=== PATIENT | female | born 1980 | race Caucasian/White ===

== ENCOUNTER 2023-10-12 20:31 | Observation (INO) | payer MEDICARE, SELFPAY ==
[2023-10-12 17:13] VITALS: BP 136/90
[2023-10-12 17:44] LABS: % Basophils 0.8 % (0-2); % Eosinophils 2.2 % (0-6); % Immature Granulocytes 0.1 % (0-0.5); % Lymphocytes 29.9 % (20.5-51.1); % Monocytes 7.1 % (1.7-9.3); % Neutrophils 59.9 % (42.2-75.2); Absolute Basophils 0.1 10^3/uL (0-0.2); Absolute Eosinophils 0.2 10^3/uL (0-0.7); Absolute Lymphocytes 2.2 10^3/uL (1.2-3.4); Absolute Monocytes 0.5 10^3/uL (0.1-0.6); Absolute Neutrophils 4.5 10^3/uL (1.4-6.5); Hematocrit 36.3 % (37.0-47.0); Hemoglobin 12.8 g/dL (12.0-16.0); Mean Corp Hgb Conc. 35.3 g/dL (33.0-37.0); Mean Corpuscular Hgb 30.8 pg (27.0-31.0); Mean Corpuscular Volume 87.5 fL (81.0-99.0); Nucleated Red Blood Cells % 0 %; Platelet Count 274 10^3/uL (130-400); Red Blood Cell Count 4.15 10^6/uL (4.20-5.40); Red Cell Dist. Width 12.5 % (11.5-14.5); White Blood Cell Count 7.4 10^3/uL (4.8-10.8)
[2023-10-12 17:51] LABS: ALT (SGPT) 12 U/L (0-35); AST (SGOT) 20 U/L (14-36); Albumin 4.1 g/dl (3.5-5.0); Alkaline Phosphatase 57 U/L (38-126); Blood Urea Nitrogen 12 mg/dl (7-17); Carbon Dioxide 26 mmol/L (22-30); Chloride 104 mmol/L (98-107); Glucose 104 mg/dl (70-99); Potassium 3.7 mmol/L (3.5-5.1); Sodium 136 mmol/L (135-145); Total Bilirubin 0.3 mg/dl (0.2-1.3); Total Protein 6.2 g/dl (6.3-8.2); eGFR > 60.00
--- NOTE | 2023-10-12 19:45 | ED.CVA ---
History of Present Illness
General
Chief Complaint: CVA/TIA Symptoms
Source: patient and spouse
Exam Limitations: none
Time Seen by Provider: 10/12/23 19:24
Nursing documentation reviewed up to this point in time: agreed with
Onset of Stroke Symptoms
Onset of symptoms known: Yes
Date of onset of symptoms: 10/09/23
History of Present Illness
History of Present Illness:
43 yo female presents to the emergency department c/o intermittent double vision, tongue numbness. Intermittent spine numbness and stuttering.
Past History
Past History
ED Past Surgical History: Orthopedic (Joint fusion)
Social History
Tobacco: Non-smoker
Alcohol: None
Drug: None
Personal:
Living: with family
Review of Systems
Review of Systems
Allergies reviewed?: Yes
All Other Systems: Not applicable
Constitutional: Reports no symptoms
EENT: Reports other (double vision)
Respiratory: Reports no symptoms
Cardiac: Reports no symptoms
ABD/GI: Reports no symptoms
: Reports no symptoms
Musculoskeletal: Reports back pain
Skin: Reports no symptoms
Neurological: Reports numbness and other (double vision)
Endocrine: Reports no symptoms
Hematologic/Lymphatic: Reports no symptoms
Psychiatric: Reports no symptoms
Phy Exam
Physical Exam
Physical Exam:
Physical Exam
General: appears uncomfortable
Neck: supple. no meningeal signs. normal posterior pharynx
Heart: s1/s2 regular rate and rhythm, no murmur. equal radial
pulses.
HEENT: Pupils equal round reactive to light, EOMI
Lungs: no acute respiratory distress. clear bilaterally
Abdomen: normal bowel sounds. not tender. no CVAT
Neuro: alert and oriented. no focal neurological deficits cranial nerves II through XII intact
Skin: no rash
Psychiatric: well kept. interactive and cooperative
Extremities: no edema. no calf tenderness. negative homans. good distal pulses
Course
Orders/Labs/Results
Orders:
Orders
10/12/23 17:27
CT Head W/o Iv Contrast Urgent
Comment:
Reason For Exam: blurry vision, numbness
10/12/23 17:31
Complete Blood Count/With Diff Urgent
Comprehensive Metabolic Panel Urgent
10/12/23 20:06
Ketorolac [Toradol] 15 mg IV NOW STA
10/12/23 20:21
Admit/Transfer Patient As Directed
Co-Sign Provider:
Level of Care: Observation services
Assign to:: Telemetry
Physician / Group: [email or web address]
Diagnosis: Acute onset of diplopia and toungur numbness without motor neurodeficit
Reason for Telemetry: CVA/TIA
Date to Stop Telemetry: 10/15/23
Time to Stop Telemetry: 11:00
Reason for Hospitalization: Acute onset of diplopia and toungur numbness without motor neurodeficit
DDX:MS vs TIA
10/12/23 20:23
Code Status As Directed
Resuscitation Status: Full Code
10/12/23 21:24
Acetaminophen [Tylenol/Feverall] 650 mg RECTAL Q4HPRN PRN
Acetaminophen [Tylenol] 650 mg PO Q4HPRN PRN
Acetaminophen [Tylenol] 650 mg PO Q6HPRN PRN
10/12/23 21:24
Echo 2D MMode Color/Doppler Routine
Reason for Study: stroke/TIA
Case Management Consult ONCE
Case Management Consult: Discharge Planning
Comment: stroke/tia
DIETARY CONSULT Routine
Reason for Consult: stroke/TIA
Tank Insulator Rubber Urgent
MR Brain With Contrast Routine
Comment:
Reason For Exam: stroke/TIA
Recent pill cam endoscopy?: No
Activity As Directed
Activity Level: With Assistance
NIH Stroke Scale As Directed
Directions: Per protocol
Comment: every shift and with any change in condition or mental status
Neurological Checks As Directed
Frequency: q4h
Additional Instructions:: q4h x 24h upon admission to the floor, then qshift & with any change in condition
and mental status
Patient Education As Directed
Type: Stroke education packet
Comment: provide to patient and family
Vital Signs As Directed
Frequency: Per unit guidelines
Ot Eval And Treat Routine
Speech Therapy Eval & Treat Routine
DX Deep Vein Thrombosis Video Routine
10/12/23 21:55
Comprehensive Metabolic Panel Routine
10/12/23 22:00
Gabapentin [Neurontin] 600 mg PO TID
10/13/23 06:00
Cardiovascular Evaluation IN AM
Complete Blood Count/No Diff IN AM
Cervical Spine Without & W [MR Cervical Spine Without & W] IN AM
Comment:
Reason For Exam: MS vs TIA
Recent pill cam endoscopy?: No
10/13/23 18:00
Enoxaparin Sodium [Lovenox] 40 mg SC QPM
10/15/23 11:00
DC Protocol for Telemetry ONCE
Abnormal Lab Results
10/12/23
17:31
RBC 4.15 L 10^6/uL
(4.20-5.40)
Hct 36.3 L %
(37.0-47.0)
Glucose 104 H mg/dl
(70-99)
Total Protein 6.2 L g/dl
(6.3-8.2)
10/12/23 17:31
10/12/23 17:31
Vital Signs
Initial and Last Documented VS:
Initial Vital Signs
Temp Pulse Resp BP Pulse Ox
98 F 115 20 136/90 99
10/12/23 17:13 10/12/23 17:13 10/12/23 17:13 10/12/23 17:13 10/12/23 17:13
Last Documented Vital Signs
Temp Pulse Resp BP Pulse Ox
98 F 83 16 122/79 98
10/12/23 23:12 10/12/23 23:12 10/12/23 23:12 10/12/23 23:12 10/12/23 23:12
MDM/Problems Addressed
Differential Diagnosis Includes:
CVA, MS, radiculopathy
MDM/Problems Addressed:
43-year-old female with numbness, double vision, back pain. Concern for MS versus TIA versus CVA. No specific neurologic deficits. Subjective double vision. Admit to hospitalist for further evaluation.
*Radiology
Radiology exam reviewed: radiology read reviewed (ct head nad)
*Pulse Oximetry
Patient hypoxic: no
*EKG
Interpreted by ED Provider?: NA
*Paving Stone Installer Interpretation
Rate: Paving Stone Installer- N/A
*Critical Care Note
Total Time (30-74mins, 75-104mins- exclusive of procedures): Not Applicable
Patient Management
Social determinants of health affecting care: Living situation
Discussion with other providers: Hospitalist
Escalation/DeEscalation of care consider admission/obs:
admit indicated
ED Attending Note
-
Portions of this chart may have been created with voice recognition software.� Occasional wrong word or��sound alike� substitutions may have occurred due to the inherent limitations of voice recognition software.
Discharge Plan
Departure
Patient Disposition: Admit
Date of Disposition: 10/12/23
Time of Disposition: 20:03
Admit to: Med/Surg
Presentation/result/management discussed w/ accepting MD/DO: Hospitalist
Patient with high blood pressure during this ER visit?: Yes
Condition: Good
Discharge Problem:
Double vision, Paresthesia
Interventions
Interventions:
*Risk Screen - Suicide Last Done: 10/12/23 17:13
*General Assessment Last Done: 10/12/23 17:13
*Neglect/Abuse Screening Last Done: 10/12/23 17:13
ED- Fall Risk Assessment Last Done: 10/12/23 20:17
*ED COVID-19 Vaccine History Last Done: 10/12/23 20:17
*Nursing Disposition Last Done: 10/12/23 21:24
ED- Pulmonary Assessment Last Done: 10/12/23 20:17
ED- Neurological Assessment Last Done: 10/12/23 20:17
ED- Cardiac Assessment Last Done: 10/12/23 20:17
ED Swallowing Screen Last Done: 10/12/23 20:17
Discharge Date and Time
Discharge Date/Time: 10/12/23 21:25
[2023-10-12 20:17] VITALS: BMI 21.7
[2023-10-12 20:18] VITALS: BP 126/86
--- NOTE | 2023-10-12 20:18 | HPS.HSE ---
Addendum entered and electronically signed by Milo Greene MD 10/12/23 20:51:
Check UDS to complete work up
Original Note:
Family Physician
-
Family Physician: PHYSICIAN PRIVATE
Chief Complaint
-
double vision,pain with radiation to Lt thigh
History of Present Illness
43F no prior admission to , HX Migraine seen at ER for evaluation for constellations of complex upper back pain, abn Rt eye vision, neck pain with radiation to Lt thigh and acute gait dysfunctions and others:
Report HX spinal infection by CSF analysis but not treated with ABx
- denied IVDA
- she came to ER due to for evaluation for constellations of complex symtoms with upper back pain, abn Rt eye vision, neck pain wiht radiation to Lt thigh and acute gait dysfunctions and others:
- No prior HX of trauma
- she has been seeing home PT since July for back pain with radicula like symptoms with radiation to Lt Christi
- associated Intermittent stuttering.
- associated numbness of tongue
- associated numbness to Rt Face
- Denied Head ache
- Denied recent acute viral infection
- Denied N & V
- Associated with acute gait dysfunction to mid central upper back pain
Medical History
Past Medical History
Past Medical History: Reports None
Past Surgical History: Reports Orthopedic (Joint fusion )
Social History
Tobacco: Non-smoker
Alcohol: None
Drug: None
Personal:
Living: With Family
Family History
Family History: Not pertinent
Allergies / Home Medications
Allergies reflects when Allergies were last updated in [facility].
Home Medications with original date entered in [facility]
Allergy/Medication List:
Allergies
Allergy/AdvReac Type Severity Reaction Status Date / Time
amoxicillin Allergy Hives Verified 10/12/23 17:19
Home Medications
acetaminophen 325 mg tablet 650 mg PO Q6HPRN PRN mild pain/fever 10/12/23
gabapentin 600 mg tablet 600 mg PO TID 10/12/23
ibuprofen 200 mg capsule 800 mg PO Q6HPRN PRN mild pain/fever 10/12/23
Review of Systems
-
Constitutional: Reports No Symptoms
EENT: Reports No Symptoms
Respiratory: Reports No Symptoms
Cardiac: Reports No Symptoms
Abdomen/GI: Reports No Symptoms
: Reports No Symptoms
Musculoskeletal: Reports No Symptoms
Skin: Reports No Symptoms
Neurological: Reports See HPI, Numbness (toungue ) and Other (double vision )
Endocrine: Reports No Symptoms
Hematologic/Lymphatic: Reports No Symptoms
Psych: Reports No Symptoms
Physical Exam
Vital Signs
Vital Signs
Temp Pulse Resp BP Pulse Ox
98 F 115 20 136/90 99
10/12/23 17:13 10/12/23 17:13 10/12/23 17:13 10/12/23 17:13 10/12/23 17:13
Physical Exam
General: Well Developed, Well Nourished, Conversant, Appears in Distress (anxious ), Pain (subjective tenderness to minimal feather weight palpation ) and Other (anxious ); No Respiratory Distress
HEENT: NormoCephalic, Moist mucous membranes and Atraumatic
Respiratory: Clear
Cardiac: S1/S2 and Regular Rhythm; No Murmur or Rub
GI: Soft, Non Tender, Non Distended and Normal Bowel Sounds; No Organomegaly
Rectal: Deferred by Provider
Genito-urinary: Deferred by me
Musculoskeletal: No Clubbing, No Cyanosis and No Edema
Skin: No Rash
Neuro: Awake, Alert, AO x 3, No Motor Deficits, Nonfocal/grossly intact and No Sensory Deficits (unclear )
Psych: Anxious; No Calm
Laboratory Results
-
10/12/23 17:31
10/12/23 17:31
Laboratory Results
Total Bilirubin 0.3 mg/dl (0.2-1.3) 10/12/23 17:31
AST 20 U/L (14-36) 10/12/23 17:31
ALT 12 U/L (0-35) 10/12/23 17:31
Alkaline Phosphatase 57 U/L (38-126) 10/12/23 17:31
Data Reviewed
-
CT Scan: Report Reviewed by me
Lab Data: Labs Reviewed by me
Impression/Plan
-
Reviewed VS: Afebrile HR 115 tachycardia Normotensive RR20 POx 99
Data
unremarkable CBC
unremarkable;e CMP
CT Head W/o Iv Contrast
- No acute intracranial abnormality
No PRIOR DH admission:
ASSESSMENT & PLAN
Pending Rx reconciliation
Acute on chronic intermittent constellations of complex symptoms such as upper back pain, abn Rt eye vision, neck pain with radiation to Lt thigh and acute gait dysfunctions and others such as Lump in the spine
- denied IVDA
- No prior HX of trauma
- she has been seeing home PT since July for back pain with REPORTED radicula like symptoms with radiation to Lt Christi
- associated Intermittent stuttering.
- associated numbness of tongue
- associated numbness to Rt Face
- Denied Head ache
- Denied recent acute viral infection
- Denied N & V
- Associated with acute gait dysfunction to mid central upper back pain
- NO FOCAL motor neuro deficit
- Subjective exquisite tenderness
DDX: Very broad and unable to narrow down the field however low clinical suspicion for TIA/CVA
- MRI Brain, Cx spine and Tx spine with contrast
- Lipids, A1C
- PT/OT
- Neuro consult
DVT Px: LMWH
Code: Full
Obs TLM
[2023-10-12] MEDS: TORADOL 15 MG IV (20:36)
[2023-10-12 21:00] VITALS: BP 113/80
[2023-10-12 21:34] VITALS: BP 120/78; BMI 21.3
[2023-10-12] MEDS: NEURONTIN 600 MG PO (22:21)
[2023-10-12 22:35] LABS: ALT (SGPT) 11 U/L (0-35); AST (SGOT) 19 U/L (14-36); Albumin 3.5 g/dl (3.5-5.0); Alkaline Phosphatase 46 U/L (38-126); Blood Urea Nitrogen 12 mg/dl (7-17); Calcium 8.5 mg/dl (8.4-10.2); Carbon Dioxide 29 mmol/L (22-30); Chloride 104 mmol/L (98-107); Estimated Creatinine Clearance 104 ml/min; Glucose 96 mg/dl (70-99); Potassium 3.6 mmol/L (3.5-5.1); Sodium 136 mmol/L (135-145); Total Bilirubin 0.3 mg/dl (0.2-1.3); Total Protein 5.5 g/dl (6.3-8.2); eGFR > 60.00
[2023-10-12] MEDS: DILAUDID 0.5 MG IV (22:45)
[2023-10-12 23:12] VITALS: BP 122/79
--- NOTE | 2023-10-12 23:18 | PTCARENOTE ---
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 Pt ambulated to bed from stretcher. Pt yelled out in pain when applying pressure to LLE. AAOx3. C/o multiple symptoms - R facial numbness, R tongue numbness, 10/10 mid back pain, L thigh pain, b/l LE ankle swelling,
'fuzzy' vision on the right side and double vison. Pt forgetful at times. NIH = 1 for numbness. Passed swallow eval. Lungs clear - shallow. SR on the monitor. Oriented to room. Dilaudid x1 given for pain.
[2023-10-13 03:34] VITALS: BP 96/63
[2023-10-13 07:36] VITALS: BP 107/71
--- NOTE | 2023-10-13 08:12 | CON.NEURO ---
Neuro Assessment/Plan
Assessment
Abrupt onset of panoply of symptomatology including visual change, back pain in the upper back, gait dysfunction and neck pain radiating to the left thigh
Most likely based on the patient's prior history of evaluations in the past as well as lack of findings currently is the diagnosis of somatizations disorder.
Plan
Obtain prior records from previous neurologist at [facility]
It is unlikely the patient would benefit from additional neuroimaging
Add additional blood work to blood in the lab to ensure no metabolic abnormalities producing symptomatology
Initiate duloxetine to help remediate patient's symptomatology
Continue gabapentin
Will follow as outpatient.
Consultation
Order
Date of Consultation: 10/13/23
Requesting Provider: Hospitalist
Reason for Consult: Possible multiple sclerosis
Subjective/Objective
Subjective Data
Date of Service: October 13, 2023
Right-handed
Started intermittently since 'spinal infection in 2021' at outside hospital for which ABX were not provided. At that time head was stuck in downward position.
'I have a huge lump in my back.
'I get over-stimulated at home.
Zapping in my face.
I get over-stimulated.
At times sound came out of the TV.'
Additional symptoms: Moving sensation in head, stuttering 2022 recurrent, and sensation change in left-cheek, moving body leads to shooting pain in left leg.
Prior medication has included Gabapentin, Tramadol.
Previous treatment has included physical therapy.
Prior evaluations by local neurologist, neurosurgery, one neurologist in [facility], ENT x2. No neurological diagnosis was given.
3 days ago, began to have recurrence of symptoms and augmentation of other symptoms.
Objective Data
Vital Signs
Temp Pulse Resp BP Pulse Ox
36.8 C 102 16 107/71 98
10/13/23 07:36 10/13/23 07:36 10/13/23 07:36 10/13/23 07:36 10/13/23 07:36
Lab Results
10/12/23 21:55
Sodium 136 mmol/L (135-145) 10/12/23 21:55
Potassium 3.6 mmol/L (3.5-5.1) 10/12/23 21:55
BUN 12 mg/dl (7-17) 10/12/23 21:55
Glucose 96 mg/dl (70-99) 10/12/23 21:55
Calcium 8.5 mg/dl (8.4-10.2) 10/12/23 21:55
Patient Allergies
amoxicillin Allergy (Verified 10/12/23 17:19)
Hives
Review of Systems
-
History Source: Patient
All other systems: Reviewed and negative
EENT: Swallowing Difficulty; Negative Decreased Vision
Respiratory: Negative Trouble Breathing
Cardiac: Negative Chest Pain
Abdomen/GI: Negative Incontinence of Stool
Genitourinary: Negative Incontinence
Musculoskeletal: Back Pain; Negative Neck Pain
Neuro: Headache; Negative Dizzy
Physical Exam
-
General: No Apparent Distress and Appears Stated Age
Eyes: OU Absent Papilledema, Round OU, [place] Conjunctivae and No Ptosis
HEENT: Anicteric and Moist Mucous Membranes
Neck: Full Range of Motion
Respiratory: No Dyspnea
Cardiac: No JVD
GI: Non-distended
Skin: Unremarkable
Extremities: No Clubbing, No Cyanosis and No Edema
Psych: Negative Intact Judgement/Insight
Extended Neurological Exam
Mood & Affect: Anxious; Negative Affect Unremarkable (Somatic, tearful, alternating with agitated, frequently moving and then reporting discomfort after self movement)
Attention Span & Concentration: Awake, Alert, Interactive and No Difficulty with 2 Step Request
Memory: Unremarkable
Tremor: Hand Tremor Absent and Head Tremor Absent
Speech: Quality Unremarkable and Quantity Unremarkable
Cranial Nerve II: Left Eye: Pupillary Reactivity Unremarkable, Pupillary Size Unremarkable and Visual Odell Intact
Cranial Nerve II: Right Eye: Pupillary Reactivity Unremarkable, Pupillary Size Unremarkable and Visual Odell Intact
Cranial Nerves III, IV, : Extraocular Movement: Extraocular Movement Full in all Directions
Cranial Nerve VII: Facial Symmetry: Normal Facial Symmetry
Cranial Nerve VIII: Hearing: Unremarkable Hearing to Normal Conversational Volume
Cranial Nerves IX, X: Palate Movement: Palate Elevation Symmetric
Cranial Nerve XI: Shoulder Shrug: Unremarkable
Cranial Nerve XII: Tongue Protusion: Midline
Muscle Strength, Overall: Full Throughout
Muscle Bulk & Tone: Bulk Unremarkable and Tone Unremarkable
Pronator Drift: No Drift in Upper Extremities
Deep Tendon Reflexes: Unremarkable Throughout
Cold Sensation: Reduced Mildly Distally
Touch Sensation: Unremarkable
Coordination: Dplqse-ghne-vrmurj Testing Unremarkable
Babinski Sign: Absent Bilaterally
Data Reviewed
-
CT Head: Report Reviewed
Labs: Ordered and Report Reviewed
Reviewed with: Physician and Patient
Old Records: Summarized
Medications
-
Active Medications
Generic Name Dose Route Start Last Admin
Trade Name Freq PRN Reason Stop Dose Admin
Acetaminophen 650 mg 10/12/23 21:24
Acetaminophen 650 Mg Rectal Suppository RECTAL 11/09/23 21:23
Q4HPRN PRN
HERNANDEZ, mild pain, or temp >100.4F
Acetaminophen 650 mg 10/12/23 21:24
Acetaminophen 325 Mg Tablet PO 11/09/23 21:23
Q4HPRN PRN
HERNANDEZ, mild pain, or temp >100.4F
Enoxaparin Sodium 40 mg 10/13/23 18:00
Enoxaparin Sodium 40 Mg/0.4 Ml Syringe SC 11/10/23 17:59
QPM RAHUL
Gabapentin 600 mg 10/12/23 22:00 10/12/23 22:21
Gabapentin 300 Mg Capsule PO 11/09/23 21:59 600 mg
TID RAHUL Administration
Sodium Chloride 0 flush 10/12/23 22:00
Sodium Chloride 0.9% (Flush) Syringe IV 11/09/23 21:59
PER PROTOCOL RAHUL
Home Medications
�Medication �Instructions �Recorded
acetaminophen 325 mg tablet 650 mg PO Q6HPRN PRN mild 10/12/23
pain/fever
gabapentin 600 mg tablet 600 mg PO TID Pain 10/12/23
ibuprofen 200 mg capsule 800 mg PO Q6HPRN PRN mild 10/12/23
pain/fever
Past History
Past History
ED Past Medical History: Psychiatric (Generalized anxiety disorder) and Other (Self-reported spinal infection without antibiotic use, migraine)
ED Past Surgical History: Orthopedic (Joint fusion)
Social History
Tobacco: Non-smoker
Alcohol: None
Drug: None
Personal:
Living: with family
Family History
Family History: Other (Reviewed and non-contirbutory)
[2023-10-13] MEDS: NEURONTIN 600 MG PO ×3 (08:19→21:59)
--- NOTE | 2023-10-13 08:51 | PTOTSP ---
Speech Language Pathology:
Clinical Swallow Evaluation
43F p/w upper back pain, abnormal rt eye vision, neck pain w radiation to lt thigh, gait dysfunction, intermittent tongue and rt facial numbness, and intermittent stuttering seen for clinical swallow evaluation this date. Presents with grossly
functional oropharyngeal swallow with occasional complaints of chest discomfort with regular solids, although not demonstrated this date. Neurology consult pending.
Recommend:
1. Regular solids, thin liquids
2. Medications as tolerated
3. Safe swallowing strategies/aspiration precautions: small bites, single sips, slow rate as needed
4. CYTOGENETICIST service to follow up pending neurology workup and provide dysphagia tx as needed
[2023-10-13] MEDS: MAALOX 30 ML PO (09:19)
[2023-10-13] MEDS: PROTONIX IV 40 MG IV (09:20)
[2023-10-13] MEDS: OFIRMEV 100 IV (09:20)
[2023-10-13] MEDS: CYMBALTA DELAYED RELEASE 30 MG PO (10:06)
--- NOTE | 2023-10-13 10:26 | W.PN.HOSP.TC ---
Today's Communication/Plan
-
Add PPI
Flexeril
Lidocaine patch
PT OT
Getting MRI this am
Assessment / Plan
Assessment / Plan
43-year-old female presented to the hospital because of pain in the thoracic spine area with radiation to the leg. She also states that there was a bulge which was noticed before. She also stated that her lower extremities were swollen.(Showed me
pictures)
I could not notice a bulge or the lower extremity edema today. Patient stated that she gets sometimes swelling of the neck which goes away on its own. She sometimes shaves that part of her hair. She also stated that all her problems started since
she had a 'spine infection' in 2021. When I got more history she states that she had a spinal tap. Patient stated that she was never treated for it. She showed me fluid which was monocyte/lymphocyte predominant and not neutrophil predominant.
She also stated that she has had worsening of the symptoms off and on and was advised to see a delinquent tax collector assistant who she has an appointment with. She stated that she does not want to go to [facility] or [facility]. She also stated that she hires
her own physical therapist to come home and do PT. They told her that she had a positive slump test. 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 Lives at home with , children and [id number] who
recently moved in with them. She has been taking a lot of ibuprofen at home for pain relief
On examination patient is extremely anxious tearful
Cardiovascular system S1-S2 appreciated
Chest clear to auscultation
Abdomen soft and nontender
Complains of tenderness in the thoracic spine multiple levels on exam
No paraspinal tenderness. No lumbar or cervical tenderness at present.
Skin with no rashes noted
No lower extremity edema
Neuroexam is nonfocal
# Upper thoracic area spine with radiation to leg
Proceed with MRI as planned for the thoracic spine
Add muscle relaxants
Add PPI and Maalox as needed to treat gastritis/esophagitis also.
Lidocaine patch
Tylenol to treat the pain.
Rational for not using narcotics explained to the patient and she understands .
neuro eval appreciated
#Anxiety -Extreme
Psyche eval
#'Leaky gut syndrome'
Had GI Mapping per pt
#H/O SI Joint fusion
#DVT Prophylaxis-Lovenox
#Full Code
D/W Neuro
D/W RN at bed side
Anticipated Discharge: Within 24 hours
Subjective/Interval History
-
Date of Service: October 13, 2023
Objective Data
-
Labs:
Laboratory Results
10/12/23 10/13/23
21:55 06:00
WBC Pending
Hgb Pending
Hct Pending
Plt Count Pending
Sodium 136
Potassium 3.6
Chloride 104
Carbon Dioxide 29
BUN 12
Creatinine 0.7
Glucose 96
Calcium 8.5
Total Bilirubin 0.3
AST 19
ALT 11
Alkaline Phosphatase 46
Vital Signs:
Vital Signs
Temp Pulse Resp BP Pulse Ox
98.2 F 102 16 107/71 98
10/13/23 07:36 10/13/23 07:36 10/13/23 07:36 10/13/23 07:36 10/13/23 07:36
I&O
10/12/23 10/13/23 10/14/23
06:59 06:59 06:59
Intake Total 480 / 480
Balance 480 / 480
[2023-10-13] MEDS: LIDOCAINE 4% PATCH 1 PATCH TOPICAL (10:30)
--- NOTE | 2023-10-13 12:16 | CM ---
Addendum entered by Siomara Juárez RN 10/13/23 14:15:
Patient admitted under observational status. Observational letter was provide and explained. Patient had no questions with regards to the letter.
Original Note:
Reviewed the chart notes and spoke with the patient's significant other at the bedside. The patient was off unit for testing. The patient resides with him in a one story home with on step to enter. No DME/VN/SNF in past. Current with [facility]. CM continues to be available to patient/family and is monitoring medical plan for needs at discharge.
Plan: Discharge to home when medically stable.
[2023-10-13] MEDS: FLEXERIL 5 MG PO ×2 (13:01→15:37)
[2023-10-13] MEDS: TORADOL 10 MG IV (13:02)
[2023-10-13 13:52] VITALS: BMI 21.3
[2023-10-13 15:11] LABS: Hematocrit 35.2 % (37.0-47.0); Hemoglobin 12.4 g/dL (12.0-16.0); Mean Corp Hgb Conc. 35.2 g/dL (33.0-37.0); Mean Corpuscular Hgb 31.1 pg (27.0-31.0); Mean Corpuscular Volume 88.2 fL (81.0-99.0); Platelet Count 245 10^3/uL (130-400); Red Blood Cell Count 3.99 10^6/uL (4.20-5.40); Red Cell Dist. Width 12.3 % (11.5-14.5); White Blood Cell Count 8.8 10^3/uL (4.8-10.8)
[2023-10-13 15:34] LABS: HDL Cholesterol 42 mg/dl; LDL Cholesterol, Calculated 99 mg/dl; Total Cholesterol 190 mg/dl (50-199); Triglyceride 249 mg/dl (10-149); Very Low Density Lipoprotein 49 mg/dl (0-30)
[2023-10-13 15:35] LABS: Erythrocyte Sed Rate 10 mm/hour (0-20)
[2023-10-13 15:45] VITALS: BP 96/61
[2023-10-13 16:05] LABS: TSH Reflex To Free T4 0.68 uIU/ml (0.47-4.68)
[2023-10-13 16:09] LABS: Ferritin 8.9 ng/ml (6.24-137)
[2023-10-13 16:40] LABS: Folate 5.6 ng/ml (2.76-20); Vitamin B12 562 pg/ml (239-931)
--- NOTE | 2023-10-13 17:21 | W.PN.UPDATE ---
Update Note
Progress Note Update
43 yo F presenting with pain in thoracic spine with radiation to the leg. Reports a history of nonspecific and/or vague symptoms and nonspecific neuro exam. Thoracic spine MRI done today with no acute pathology noted. Pt was observed to be very
anxious and distressed, psychiatry was consulted to assess anxiety.
Attempted to speak with pt today, she was laying in bed & appeared to be sleeping. Was easily arousable but said she has a headache and cannot participate in interview at this time, asked that I return at a different time.
Will attempt to reassess tomorrow.
[2023-10-13] MEDS: LOVENOX 40 MG SC (17:24)
[2023-10-13] MEDS: ULTRAM 50 MG PO (17:24)
[2023-10-13 19:49] VITALS: BP 115/76
[2023-10-13] MEDS: SENOKOT 17.2 MG PO (20:25)
[2023-10-13] MEDS: PROTONIX 40 MG PO (20:25)
[2023-10-13] MEDS: SOMA 350 MG PO (21:59)
[2023-10-13 23:44] VITALS: BP 113/72
[2023-10-14 03:11] VITALS: BP 101/58
--- NOTE | 2023-10-14 06:40 | PTCARENOTE ---
Pt bladder scanned. Only 30ml present in pt bladder
[2023-10-14 07:33] VITALS: BP 112/73
[2023-10-14] MEDS: NEURONTIN 600 MG PO (07:53)
[2023-10-14] MEDS: LIDOCAINE 4% PATCH 1 PATCH TOPICAL (07:53)
[2023-10-14] MEDS: PROTONIX 40 MG PO (07:53)
[2023-10-14] MEDS: SENOKOT 17.2 MG PO (07:53)
[2023-10-14] MEDS: ULTRAM 50 MG PO (11:06)
[2023-10-14] MEDS: SOMA 350 MG PO (11:07)
--- NOTE | 2023-10-14 11:46 | CM ---
Chart reviewed and mason may sign out AMA today.
Plan; Mason may sign out AMA today.
--- NOTE | 2023-10-14 11:52 | PTCARENOTE ---
Received report from RN overnight. RN stated pt slept most of the night, no requests for pain medicine. When I went to do pt meds this AM, I asked pt how her pain was. Pt stated 'I dont know I just woke up'. Pt took her pills, then fell back asleep.
Around 10:30 am pt was upset and said she wanted to leave AMA, her pain is not being managed, etc. Dr gallagher was notified. Dr gallagher came to speak with pt. Ultimately, pt still wants to leave ama.
--- NOTE | 2023-10-14 11:55 | W.PN.UPDATE ---
Addendum entered and electronically signed by Jeff Badillo MD 10/14/23 15:47:
Dictation- [id number]
Original Note:
Update Note
Progress Note Update
Nursing notified me that patient wants to leave AGAINST MEDICAL ADVICE .
Nursing reports that patient slept well all night without requiring any pain medicines. This morning when she was offered she wanted to see how she felt before she took them.
On arrival to the room patient notifies me that she wants to leave because nothing is getting done and she is in pain. She stated that she has swelling in the left upper back-and she read the MRI report could be causing some of the swelling. I
reviewed the MRI report with her and she stated that even with that amount of findings can cause symptoms in some patients. She then asked her who is sitting at her bedside asking if in that true. He said that we talked that the doctor will
come and discuss the results. He was not participating further in her conversation with me.
On examination of her back I did not find any 'bulge' in her back today.
She also stated that she gets shooting pains in her legs. We discussed about lower back evaluation and also for the bulge in her back to get a CT scan to evaluate the soft tissue or rule out blood clot in the lung.
Suddenly she got upset and stated that she is not staying here for all that. She was in a lot of pain yesterday and everybody asked why I was not getting pain medicines.
Patient was made aware that she is allowed to get Tylenol, Toradol and also tramadol while evaluating for pain.
I also pointed out that starting narcotics without a clear diagnosis or plan to end narcotic treatment would not be at her best interest.
We discussed that we can still work on getting a diagnosis.
Patient stated that she has right send she is going to be discharged AGAINST MEDICAL ADVICE
She refused to sign the paper saying that she knows that it is not required 'by law'
This was witnessed by TAMRA MENDOZA
I made the patient aware that if she changes her mind she can still come back to complete her workup where we left at.
IV will be taken out and patient is leaving AGAINST MEDICAL ADVICE , ramifications were discussed.
== END 2023-10-14 12:36 | disposition left against medical advice (07) ==
LOC: 4 WEST ACU 20:31
PROVIDERS: Emergency Medicine; ADMITTING PHYSICIAN Internal Medicine; ATTENDING PHYSICIAN Hospitalist; CONSULT PHYSICIAN Psychiatry & Neurology Neurology; EMERGENCY PHYSICIAN Emergency Medicine
DX: M54.6 Pain in thoracic spine (principal); H53.2 Diplopia; R20.0 Anesthesia of skin; M54.9 Dorsalgia, unspecified; H53.8 Other visual disturbances; R20.2 Paresthesia of skin; R26.9 Unspecified abnormalities of gait and mobility; M54.2 Cervicalgia; F41.1 Generalized anxiety disorder; R51.9 Headache, unspecified; Z88.0 Allergy status to penicillin
CPT/HCPCS: 70450; 72157; 80053; 80061; 82607; 82728; 82746; 84443; 85025; 85027; 85652; 92610; 99285; 99406; A9575; G0378